=== PATIENT | female | born 1995 ===

== ENCOUNTER 2024-09-28 10:15 | Inpatient (IN) | payer OTHER ==
[~2024-09-28] VITALS: Ht 165.1 cm; Wt 73.9 kg
[2024-10-06] VITALS (11 sets, daily range): BP systolic 101–135; BP diastolic 57–83
[2024-10-06] MEDS ORDERED: RINGERS SOLUTION,LACTATED 1,000 ML IV SCH (03:15)
[2024-10-06] MEDS ORDERED: ERYTHROMYCIN BASE OPHT 1GM EACH TUBE OP ONE ×2 (03:40→06:30)
[2024-10-06] MEDS ORDERED: LIDOCAINE HCL 1% 10ML VIAL ONE ×2 (03:40→05:07)
[2024-10-06] MEDS ORDERED: OXYTOCIN 20 UNITS/1000ML RL PIGGYBAG IV ONE (03:40)
[2024-10-06] MEDS ORDERED: CHLORHEXIDINE GLUCONATE 120 ML BOTTLE TOP ONE (03:40)
[2024-10-06 03:56] LABS: HEMATOCRIT 36.8 % (36.0-45.00); HEMOGLOBIN 12.8 g/dL (12.0-15.00); MEAN CELL VOLUME 89.2 fL (80.00-100.00); MEAN CORPUSCULAR HEMOGLOBIN 31.1 pg (27.00-32.0); MEAN CORPUSCULAR HGB CONC 34.8 g/dl (32.0-36.0); RED BLOOD COUNT 4.13 M/uL (4.00-6.00); RED CELL DISTRIBUTION WIDTH 13.5 % (11.5-14.5)
[2024-10-06 04:02] LABS: PLATELET COUNT 117 K/uL (150-450)
[2024-10-06 04:15] LABS: INR < 0.93; PARTIAL THROMBOPLASTIN TIME 24.2 SECONDS (22.0-34.0); PROTHROMBIN TIME 9.8 SECONDS (9.0-11.5)
[2024-10-06 04:32] LABS: BILIRUBIN TOTAL 0.22 mg/dL (0.3-1.2); CALCIUM 8.8 mg/dL (8.5-10.1); CREATININE SERUM 0.97 mg/dL (0.55-1.02); GFR 67.43; GLOBULINA 3.3 G/DL (2.4-3.5); POTASSIUM 3.86 mEq/L (3.5-5.1); TOTAL PROTEIN 6.3 gm/dL (6.4-8.2)
[2024-10-06] MEDS ORDERED: CHLORHEXIDINE GLUCONATE 120 ML BOTTLE TOP SCH (06:00)
[2024-10-06] MEDS ORDERED: KETOROLAC TROMETHAMINE 10 MG TABLET PO SCH (06:00)
[2024-10-06] MEDS ORDERED: OXYTOCIN 1,000 ML IV SCH (06:00)
[2024-10-06] MEDS ORDERED: LIDOCAINE HCL 1% 10ML VIAL IJ ONE (06:30)
[2024-10-06] MEDS ORDERED: OxyCODONE HCL/APAP UD (PERCOCET) PO SCH (09:00)
[2024-10-07 01:28] VITALS: BP 118/75; O2SAT 100
[2024-10-07 08:22] VITALS: BP 124/83
[2024-10-07 13:55] VITALS: BP 120/78
[2024-10-07 18:16] VITALS: BP 133/79
[2024-10-08] VITALS: BP 135/81
[2024-10-08 08:00] VITALS: BP 117/76
== END 2024-10-08 12:19 | disposition home or self-care (01) | DRG 807 ==
LOC: LDR 10-06 03:05 → OB/GYN 10-06 09:44
PROVIDERS: ADMIT Obstetrics & Gynecology Maternal & Fetal Medicine; ATTEND Obstetrics & Gynecology Maternal & Fetal Medicine
PROC: 10E0XZZ Delivery of Products of Conception, External Approach (ICD-10-PCS; principal; 2024-10-06)
PROC: 0KQM0ZZ Repair Perineum Muscle, Open Approach (ICD-10-PCS; 2024-10-06)
PROC: 4A1HXCZ Monitoring of Products of Conception, Cardiac Rate, External Approach (ICD-10-PCS; 2024-10-06)
DX: O70.1 Second degree perineal laceration during delivery (principal); Z37.0 Single live birth; Z3A.38 38 weeks gestation of pregnancy; Z20.822 Contact with and (suspected) exposure to COVID-19